=== PATIENT | female | born 2000 | race Caucasian/White ===

== ENCOUNTER 2024-03-03 07:48 | Day surgery (SDC) | payer BC, OTHER ==
[2024-03-03] MEDS ORDERED: Acetaminophen 500 MG TAB ONE (08:02)
[2024-03-03] MEDS ORDERED: Acetaminophen 500 MG TAB PO SCH (08:15)
[2024-03-03] MEDS ORDERED: Iron Sucrose Complex 250 MG in Sodium Chloride 0.9% 250 ML 250 ML IVPB SCH (08:15)
== END 2024-03-03 12:45 | disposition home or self-care (01) ==
LOC: CSHSDC 07:48
PROVIDERS: ATTEND Family Medicine
DX: O99.019 Anemia complicating pregnancy, unspecified trimester (principal); Z3A.00 Weeks of gestation of pregnancy not specified; Z88.0 Allergy status to penicillin
CPT/HCPCS: J1756; J7050